=== PATIENT | male | born 2000 | race African-American/Black ===

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

== ENCOUNTER 2024-04-06 16:12 | Emergency (ER) | payer SELFPAY ==
[~2024-04-06] VITALS: Ht 182.9 cm; Wt 73.0 kg
[2024-04-06 16:20] VITALS: O2SAT 98
[2024-04-06] MEDS ORDERED: TETANUS, DIPHTHERIA, PERTUSSIS VAC/PF 0.5ML (>10YR OLD) IM ONE (18:30)
[2024-04-06] MEDS: BACITRACIN ZINC OINT UDPKT TOP ONE (18:30)
[2024-04-06] MEDS ORDERED: NAPR-681 PO (19:44)
[2024-04-06] MEDS: LIDOCAINE HCL/PF 1% 10 MG/ML 5ML VIAL INFIL ONE (19:53)
[2024-04-06 20:05] VITALS: BP 128/77; PULSE 79; RESP 20; TEMP 98.4
== END 2024-04-06 20:08 | disposition home or self-care (01) ==
LOC: ER 16:12
DX: S61.411A Laceration without foreign body of right hand, initial encounter (principal); Z98.890 Other specified postprocedural states; X58.XXXA Exposure to other specified factors, initial encounter; Y93.89 Activity, other specified; Y92.89 Other specified places as the place of occurrence of the external cause; Y99.8 Other external cause status
CPT/HCPCS: 99283; 73130; J3490

== ENCOUNTER 2024-04-23 12:08 | Emergency (ER) | payer MEDICAID ==
[~2024-04-23] VITALS: Ht 185.4 cm; Wt 77.0 kg
[~2024-04-23 12:08] MED LIST changes: +NAPR-681 PO
[2024-04-23 12:16] VITALS: O2SAT 100
[2024-04-23 12:26] VITALS: BP 141/56; PULSE 59; RESP 12; TEMP 36.83628; O2SAT 100
== END 2024-04-23 12:27 | disposition home or self-care (01) ==
LOC: ER 12:11
DX: S61.411D Laceration without foreign body of right hand, subsequent encounter (principal); Z48.02 Encounter for removal of sutures; X58.XXXD Exposure to other specified factors, subsequent encounter
CPT/HCPCS: 99281; Z7610